=== PATIENT | female | born 1940 | race Caucasian/White ===

== ENCOUNTER 2017-05-29 17:54 | Emergency (ER) | payer MEDICARE, OTHER ==
[2017-05-29] MEDS ORDERED: HYDROcodone/ACETAMINOPHEN 1 EACH TABLET ONE ×2 (18:30→19:48)
[2017-05-29] MEDS: HYDROcodone/ACETAMINOPHEN 1 EACH TABLET PO ONE ×2 (18:31→19:56)
--- NOTE | 2017-05-29 19:04 | ERNOTE ---
Back Pain ER HPI Date of Service: 05/29/17 Presenting Symptoms: injury/pain to back Time Seen by Provider: 05/29/17 18:21 Source: patient, RN notes reviewed Exam Limitations: no limitations Immunizations: IMMUNIZATION HX Immunizations Up to Date Yes History of Influenza Vaccine No Hx Pneumococcal Vaccination No Allergies/Adverse Reactions: Allergies pravastatin sodium [From Pravachol] Adverse Reaction (Mild, Verified 05/29/17 18 :13) HEADACHES Home Medications: HOME MEDICATIONS Calcium Carbonate/Vitamin D3 [Calcium 600 + Vit D3 Caplet] 1 each PO BID [Last Taken Unknown] Cholecalciferol (Vitamin D3) [Vitamin D3] 1,000 unit PO DAILY 06/04/15 [Last Taken Unknown] Fenofibrate [Lofibra] 160 mg PO DAILY 06/04/15 [Last Taken Unknown] Methimazole [Tapazole] 2.5 mg PO DAILY 06/04/15 [Last Taken Unknown] Propranolol HCl [Inderal] 10 mg PO BID 06/04/15 [Last Taken 09/13/15 04:30 10 MG ] HYDROcodone/ACETAMINOPHEN [[place] 5-325] 1 tab PO Q6H PRN #20 tab 05/29/17 [Last Taken Unknown] Narrative: 76 y/o female brought to the ED by her son for back pain due to a fall. She fell at home while making her bed 2 days ago. She reports landing on her behind. She saw a chiropractor yesterday and had relief for several hours. She has taken Aleve without any improvement. She had a back surgery 10 years ago and has not had back problems since. Date (Duration): 05/27/17 Timing: Reports: constant Quality/Severity: Reports: severe, aching Location of pain: Reports: lower back, no radiation Recent Injury?: Reports: yes Possible Precipitating Factor: Reports: fall/near fall Associated Symptoms: Denies: fever/chills, sweating, constipation/incontinence, nausea/vomiting, problems urinating, difficulty walking, numbess/weakness in legs Prior Treament: Denies: recently seen, similar symptoms before Review of Systems - Review of Systems Constitutional: Present: decreased activity level. Absent: recent illness, fever, chills EYE: Present: no symptoms reported ENT: Present: no symptoms reported Respiratory: Absent: shortness of breath, cough Cardiology: Absent: chest pain, syncope Gastrointestinal/Abdominal: Absent: nausea, abdominal pain Genitourinary: Absent: dysuria, decreased urinary output Musculoskeletal: Present: back pain. Absent: neck pain, joint pain, joint swelling Skin: Absent: lesions, lumps Neurological: Absent: weakness, numbness, tingling Endocrine: Present: no symptoms reported Hematologic/Lymphatic: Present: no symptoms reported Psych: Present: no symptoms reported - Patient's Past Medical History Patient History - Medical: Arthritis, Hypothyroidism Patient History - Cardiac/Respiratory: Hypertension, Hyperlipidemia Patient History - Cancer: No Hx of Cancer Patient History - Surgical Procedures: Back Surgery, Cataracts, Cholecystectomy , Colonoscopy Patient History - Other: None - Social History Living Situations: home Abuse History: No History of abuse Psych History: No pertinent hx Smoking Status: Never smoker Alcohol Use: none Drug Use: none - Immunizations Immunizations Up to Date: Yes Hx Pneumococcal Vaccination: No History of Influenza Vaccine: No Physical Exam - Physical Exam General Appearance: Present: wd/wn, alert, mild distress, other - Standing beside exam table, too uncomfortable to sit Neck: Present: normal inspection, nontender, supple, full range of motion Respiratory: Present: no respiratory distress, normal breath sounds, no accessory muscle use, lungs clear Cardiovascular/Chest: Present: regular rate, rhythm, no murmur Back Exam: Present: no CVA tenderness, no vertebral tenderness, decreased range of motion, other - Lumbar region paraspinal muscle tenderness with palpation Extremity Exam: Present: normal inspection, normal range of motion, no edema Neurological Exam: Present: alert, oriented, normal mood/affect, no motor/ sensory deficits Skin Exam: Present: normal color, warm/dry ED Progress - Vital Signs Patient's Vital Signs:: I have reviewed the patient's vital signs. Vital Signs: Vital Signs 05/29/17 05/29/17 18:00 18:44 Temperature 37.2 C Pulse Rate 69 67 Respiratory 14 Rate Blood Pressure 186/71 181/73 O2 Sat by Pulse 97 Oximetry - X-Ray X-Ray #1 X-Ray: lumbosacral Interpretation: Reviewed by me X-ray Comments: IMPRESSION: 1. Anterior wedging of the T11 and L1 vertebral bodies, of indeterminate age. Correlate clinically for possible compression fractures. Consider follow-up by MRI examination or nuclear medicine bone scan, if the patient has contraindications to MRI. 2. L4-L5 and L5-S1 level disc disease, anterolisthesis, and facet joint arthropathy. Electronically signed by Jaylyn Salgado M.D.. - Progress/Reassessment Chief Complaint: Back Pain Progress:: Improved Departure Clinical Impression: Back pain due to injury Fall at home Qualifiers: Encounter type: initial encounter Qualified Code(s): W19.XXXA - Unspecified fall, initial encounter - Departure Disposition: Home Follow Up Needed Condition: Stable Instructions: Back Pain, Adult, [id number] Additional Instructions: Use pain medication with caution - can cause dizziness, drowsiness and upset stomach, can also cause constipation - you may need a laxative Ice to sore area Follow up with Marylu or with Dr. Zhou if no improvement by next week Referrals: Marylu Marin, [facility] - Prescriptions: HYDROcodone/ACETAMINOPHEN [[place] 5-325] 1 tab PO Q6H PRN #20 tab PRN Reason: Pain
[2017-05-29 19:28] VITALS: BP 192/62
== END 2017-05-29 20:04 | disposition home or self-care (01) ==
LOC: ER 17:54
DX: S39.92XA Unspecified injury of lower back, initial encounter (principal); W19.XXXA Unspecified fall, initial encounter